=== PATIENT | female | born 1930 | race Caucasian/White ===

== ENCOUNTER 2019-11-15 13:24 | Inpatient (IN) ==
[2019-11-15] MEDS ORDERED: *HR* Promethazine 25 MG/ML VIAL IVP PRN (16:30)
[2019-11-15] MEDS ORDERED: Naloxone 0.4 MG/ML INJ IVP PRN (16:30)
[2019-11-15] MEDS ORDERED: Ondansetron 4 MG/2 ML VIAL IVP PRN (16:30)
[2019-11-15] MEDS ORDERED: *HR* Labetalol 20 MG/4 ML SYRINGE IVP PRN (16:57)
[2019-11-15] MEDS: *HR* Heparin 5,000 UNIT/ML VIAL SQ SCH (18:39)
[2019-11-15] MEDS: D5% in 0.45% NACL 1,000 ML IVC SCH (18:40)
[2019-11-16 01:36] LABS: Basophils % 0.3 %; Eosinophils # 0.1 K/mcL (0.0-0.6); Eosinophils % 0.4 %; Hemoglobin 11.5 g/dL (11.5-15.4); Immature Granulocytes % 0.6 % (0-4); Lymphocytes # 0.9 K/mcL (0.6-4.6); Lymphocytes % 7.5 %; Mean Corpuscular HGB Conc 32.9 g/dL (31.6-35.5); Mean Corpuscular Hemoglobin 26.4 pg (28.0-33.3); Mean Corpuscular Volume 80.5 fL (83.0-100.0); Mean Platelet Volume 10.2 fL (9.4-12.4); Monocytes # 0.7 K/mcL (0.0-1.3); Monocytes % 6.4 %; Neutrophils # 9.8 K/mcL (1.6-8.9); Platelet Count 235 K/mcL (140-400); Red Blood Count 4.35 M/mcL (3.82-4.97); Red Cell Distribution Width 15.9 % (11.5-14.5); Segmented Neutrophils % 84.8 %; White Blood Count 11.6 K/mcL (4.3-11.1)
[2019-11-16 02:22] LABS: BUN/Creatinine Ratio 33 (6-26); Blood Urea Nitrogen 22 mg/dL (8-23); Calcium 8.1 mg/dL (8.6-10.3); Carbon Dioxide 23 mEq/L (23-29); Chloride 103 mEq/L (98-107); Glucose 147 mg/dL (70-105); Osmolality,Calculated 284 (280-300); Sodium 134 mEq/L (136-145); eGFR For African Americans > 60 (> 60); eGFR For Non-African Americans > 60 (> 60)
[2019-11-16] MEDS: D5% in 0.45% NACL 1,000 ML IVC SCH (05:08)
[2019-11-16] MEDS: *HR* Heparin 5,000 UNIT/ML VIAL SQ SCH ×2 (05:18→17:27)
[2019-11-16] MEDS: Piperacillin/Tazobactam 3.375 GM in 0.9 % Sodium Chloride Mini Bag 100 ML IVPB SCH ×2 (07:51→16:45)
[2019-11-16] MEDS ORDERED: *HR* FentaNYL (PF) 100 MCG/2 ML VIAL ONE (17:48)
[2019-11-16] MEDS ORDERED: *HR* Propofol 200 MG/20 ML VIAL IVP ONE (17:49)
[2019-11-16] MEDS ORDERED: Lidocaine 1% 20 ML MDV ONE (17:53)
[2019-11-16] MEDS ORDERED: Famotidine 20 MG/2 ML VIAL ONE (17:54)
[2019-11-16] MEDS ORDERED: Acetaminophen IV 1,000 MG/100 ML INFUS..BTL ONE (17:54)
[2019-11-16] MEDS ORDERED: Lidocaine -MPF 2% 5 ML VIAL ONE (17:55)
[2019-11-16] MEDS ORDERED: Lidocaine -MPF 2% 2 ML VIAL ONE (18:02)
[2019-11-16] MEDS ORDERED: Dexamethasone 4 MG/ML VIAL ONE (19:00)
[2019-11-16] MEDS ORDERED: Ondansetron 4 MG/2 ML VIAL ONE (19:00)
[2019-11-16] MEDS: *HR* HYDROmorphone (PF) 1 MG/ML SYRINGE IVP PRN ×2 (19:54→20:04)
[2019-11-16] MEDS ORDERED: *HR* Promethazine 25 MG/ML VIAL IVP PRN (20:38)
[2019-11-16] MEDS ORDERED: Naloxone 0.4 MG/ML INJ IVP PRN (20:38)
[2019-11-16] MEDS ORDERED: *HR* Labetalol 20 MG/4 ML SYRINGE IVP PRN (20:38)
[2019-11-16] MEDS ORDERED: Ondansetron 4 MG/2 ML VIAL IVP PRN (20:38)
[2019-11-16] MEDS ORDERED: D5% in Water 1,000 ML IVC PRN (21:04)
[2019-11-16] MEDS ORDERED: Dextrose Gel 15 GM/37.5 ML TUBE PO PRN ×2 (21:04)
[2019-11-16] MEDS ORDERED: *HR* Dextrose 50 % in Water (Syg) 50 ML SYRINGE IVP PRN (21:04)
[2019-11-16] MEDS: D5% in Lactated Ringers 1,000 ML IVC SCH (22:54)
[2019-11-17] MEDS: Piperacillin/Tazobactam 3.375 GM in 0.9 % Sodium Chloride Mini Bag 100 ML IVPB SCH ×2 (02:19→07:56)
[2019-11-17] MEDS: *HR* Heparin 5,000 UNIT/ML VIAL SQ SCH ×2 (06:55→18:56)
[2019-11-17 10:09] LABS: Basophils % 0.1 %; Hematocrit 37.2 % (35.3-44.9); Hemoglobin 11.7 g/dL (11.5-15.4); Immature Granulocytes % 0.2 % (0-4); Lymphocytes # 0.5 K/mcL (0.6-4.6); Lymphocytes % 4.1 %; Mean Corpuscular HGB Conc 31.5 g/dL (31.6-35.5); Mean Corpuscular Hemoglobin 26.8 pg (28.0-33.3); Mean Corpuscular Volume 85.1 fL (83.0-100.0); Mean Platelet Volume 10.3 fL (9.4-12.4); Monocytes # 0.6 K/mcL (0.0-1.3); Monocytes % 5.1 %; Platelet Count 252 K/mcL (140-400); Red Blood Count 4.37 M/mcL (3.82-4.97); Segmented Neutrophils % 90.5 %; White Blood Count 12.1 K/mcL (4.3-11.1)
[2019-11-17 10:24] LABS: BUN/Creatinine Ratio 19 (6-26); Blood Urea Nitrogen 15 mg/dL (8-23); Calcium 8.4 mg/dL (8.6-10.3); Carbon Dioxide 24 mEq/L (23-29); Chloride 102 mEq/L (98-107); Glucose 155 mg/dL (70-105); Osmolality,Calculated 288 (280-300); Potassium 3.9 mEq/L (3.5-5.1); Sodium 137 mEq/L (136-145); eGFR For African Americans > 60 (> 60); eGFR For Non-African Americans > 60 (> 60)
[2019-11-17] MEDS: D5% in Lactated Ringers 1,000 ML IVC SCH (11:56)
[2019-11-17 14:48] VITALS: BP 163/69
[2019-11-17] MEDS ORDERED: Chloraseptic Spray 177 ML BOTTLE MM PRN (15:57)
== END 2019-11-17 20:47 | disposition short-term general hospital (02) | DRG 358 ==
LOC: 3ANU → SUATTDRO 19:45
PROVIDERS: ADMIT Internal Medicine; ATTEND Internal Medicine